=== PATIENT | female | born 1975 | race Caucasian/White ===

== ENCOUNTER 2016-10-26 18:21 | Emergency (ER) | payer BC ==
[~2016-10-26] VITALS: Ht 160 cm; Wt 68.5 kg
[~2016-10-26 18:21] MED LIST: HYDR-3498 PO; IBUP-1542 PO; METF-382 PO; NITR-58 PO; ULT50 PO
[2016-10-26 18:25] VITALS: Ht 160 cm; Wt 68.5 kg
[2016-10-26] MEDS ORDERED: PRED20TA PO (20:07)
[2016-10-26] MEDS ORDERED: ULT50 PO (20:09)
--- NOTE | 2016-10-26 20:12 | ERD ---
ER Documentation Chief Complaint Date/Time DATE: 10/26/16 TIME: 20:10 Chief Complaint left arm aND WRIST PAIN SINCE YESTERDAY, DENIES INJURY HPI This is a 41-year-old female complains of pain to the left wrist located at the lateral aspect of the volar surface. She says she feels some pain at the forearm as well. Pain is described as burning and sharp worse with movement of her digits or wrist. No swelling no fever no trauma. No repetitive use at home. ROS All systems reviewed and are negative except as per history of present illness. Medications Home Meds Active Scripts Tramadol HCl (Tramadol HCl) 50 Mg Tablet, 50 MG PO Q6, #20 TAB Prov:AME BUCKLEY DO 10/26/16 Prednisone* (Prednisone*) 20 Mg Tab, 60 MG PO DAILY for 5 Days, TAB Prov:AME BUCKLEY. DO 10/26/16 Tramadol HCl (Tramadol HCl) 50 Mg Tablet, 50 MG PO Q4 Y for PAIN, #20 TAB Prov:DESIREE WHALEN PA-C 04/25/16 Hydrocodone Bit-Acetaminophen* ([place]*) 5-325 Mg Tab, 1 TAB PO Q6 Y for PAIN, # 20 TAB Prov:KATHLEEN NOEL 02/13/16 Nitrofurantoin Monohyd Macrocr* (Macrobid*) 100 Mg Capsr, 100 MG PO BID for 7 Days, CAP Prov:KATHLEEN NOEL 02/13/16 Ibuprofen* (Motrin*) 600 Mg Tab, 600 MG PO Q6, #30 TAB Prov:KATHLEEN NOEL 02/13/16 Reported Medications Metformin Hcl* (Metformin Hcl*) 500 Mg Tablet, 500 MG PO BID 08/06/12 Allergies Allergies: Coded Allergies: aspirin (Verified Allergy, Severe, PALPITATIONS, 04/27/15) morphine (Verified Allergy, Unknown, ITCHING, 04/27/15) codeine (Verified Adverse Reaction, Severe, SEVERE VOMITING, 12/21/12) PMhx/Soc Medical and Surgical Hx: pt denies Medical Hx, pt denies Surgical Hx History of Surgery: Yes (Right lumpectomy ) Anesthesia Reaction: No Hx Neurological Disorder: No Hx Respiratory Disorders: No Hx Cardiac Disorders: Yes (Congenital heart defect ) Hx Psychiatric Problems: No Hx Miscellaneous Medical Probl: Yes (Hypothyroidism, DM) Hx Alcohol Use: No Hx Substance Use: No Hx Tobacco Use: No Smoking Status: Never smoker FmHx Family History: No coronary disease Physical Exam Vitals Vital Signs Date Time Temp Pulse Resp B/P Pulse Ox O2 Delivery O2 Flow Rate FiO2 10/26/16 18:25 97.8 93 20 126/74 99 Physical Exam Const: Well-developed, well-nourished Head: Atraumatic, normocephalic Eyes: Normal Conjunctiva, PERRLA, EOMI, normal sclera, no nystagmus ENT: Normal External Ears, Nose and Mouth, moist mucus membranes. Neck: Full range of motion. No meningismus, no lymphadenopathy. Resp: Clear to auscultation bilaterally, no wheezing, rhonchi, rales Cardio: Regular rate and rhythm, no murmurs, S1 S2 present Abd: Soft, non tender x 4, non distended. Normal bowel sounds, no guarding or rebound, no pulsitile abdominal masses or bruits Skin: No petechiae or rashes, no ecchymosis , no maculopapular rash Back: No midline or flank tenderness Ext: No cyanosis, or edema, FROM x 4, there is reproducible pain to palpation at the volar surface of the wrist at the lateral aspect when she tries to resist index finger flexion the pain is reproducible and severe. There is no swelling no signs of septic wrist. No pain in the elbow there is some pain at the forearm on the volar surface as well she tries to flex the index finger normal inspection, neurovascularly intact x 4 Neur: Awake and alert, STR 5/5 x 4, sensation intact x 4, no focal findings, cerebellum intact Psych: Normal Mood and Affect Results 24 hrs Current Medications Medications (Trade) Dose Ordered Sig/Da Route PRN Reason Start Time Stop Time Status Last Admin Dose Admin Prednisone (Prednisone) 60 mg ONCE ONCE PO 10/26/16 20:30 10/26/16 20:31 Procedures/MDM Patient has some tendinitis of the flexor tendon of the index finger. Will put a wrist guard on and gave her signs and symptoms to return for if occur Departure Diagnosis: Primary Impression: Tendonitis of wrist, left Condition: Stable Patient Instructions: Tendonitis Referrals: AL VAUGHAN MD, APOSTOLOS A. DO Oct 26, 2016 20:12
[2016-10-26] MEDS ORDERED: predniSONE 20 MG TAB PO ONE (20:30)
== END 2016-10-26 20:23 | disposition home or self-care (01) ==
LOC: FTE 18:21
DX: M77.8 Other enthesopathies, not elsewhere classified (principal); E03.9 Hypothyroidism, unspecified; E11.9 Type 2 diabetes mellitus without complications; Z79.84 Long term (current) use of oral hypoglycemic drugs
CPT/HCPCS: 29125; 99284; J7512